=== PATIENT | male | born 1965 | race Caucasian/White ===

== ENCOUNTER 2022-03-27 11:46 | Emergency (ER) | payer BC ==
[2022-03-27] MEDS ORDERED: Bupivacaine PF 0.5% 30 ML VIAL ONE (12:49)
[2022-03-27] MEDS ORDERED: Lidocaine 2% 20 ml MDV ONE (12:49)
[2022-03-27] MEDS ORDERED: Boostrix 0.5 ML (Tdap) VIAL ONE (13:40)
== END 2022-03-27 15:17 | disposition home or self-care (01) ==
LOC: MADERS 11:46
DX: S68.120A Partial traumatic metacarpophalangeal amputation of right index finger, initial encounter (principal); W27.8XXA Contact with other nonpowered hand tool, initial encounter; Z23 Encounter for immunization; E11.9 Type 2 diabetes mellitus without complications; F17.220 Nicotine dependence, chewing tobacco, uncomplicated; Z79.84 Long term (current) use of oral hypoglycemic drugs; Z79.82 Long term (current) use of aspirin; Z79.899 Other long term (current) drug therapy
CPT/HCPCS: 12002; 90471; 90715; S0020

== ENCOUNTER 2022-04-09 19:02 | Emergency (ER) | payer BC | END 2022-04-09 19:40 | disposition home or self-care (01) | LOC: MADERS 19:02 | DX: S60.420A Blister (nonthermal) of right index finger, initial encounter (principal); Z48.817 Encounter for surgical aftercare following surgery on the skin and subcutaneous tissue; I10 Essential (primary) hypertension; E11.9 Type 2 diabetes mellitus without complications; F17.220 Nicotine dependence, chewing tobacco, uncomplicated; X58.XXXA Exposure to other specified factors, initial encounter; Z79.82 Long term (current) use of aspirin; Z79.4 Long term (current) use of insulin; Z79.899 Other long term (current) drug therapy | CPT/HCPCS: 99282 ==